=== PATIENT | male | born 1975 | race Hispanic/Latino ===

== ENCOUNTER → 2019-02-18 | Outpatient (CLI) | payer BC ==
[~2019-02-18] MED LIST: IOPAMIDOL 370 MG/ML 200 ML INFUS..BTL INJ ONE; NITROGLYCERIN 0.4 MG SUBL ONE; SODIUM CHLORIDE 0.9% 100 ML ONE
[2019-02-18 11:03] LABS: BLOOD UREA NITROGEN 20 mg/dL (7-26); BUN/CREATININE RATIO 26 (6-25); CREATININE, SERUM 0.77 mg/dL (0.72-1.25); EST GLOMERULAR FILTRATION RATE > 60 ML/MIN (60-)
--- NOTE | 2019-02-18 13:33 | Diagnostic Imaging Report ---
EXAM: CALCIUM SCORE AND CORONARY CTA INDICATION: ^[id number] ^[id number] ^CHEST PAIN COMPARISON: None. TECHNIQUE: Multi-detector CT technology was employed (64 MDCT [employer]). Minimal slice thickness with retrospective gating was performed following the intravenous administration of contrast material. The patient was premedicated with 0.4 mg sublingual nitroglycerin for coronary dilation. No need to administer beta gregorio due to low heart rate during the exam (50 bpm). IV CONTRAST: 150 mL of Omnipaque 350 ORAL CONTRAST: None COMPLICATIONS: None RADIATION DOSE: Total DLP: 1372.4 mGy*cm Estimated effective dose: (DLP x 0.015 x size factor) mSv CTDIvol has been reviewed. It is below the limits set by the Radiation Protocol Committee (RPC). For optimization of anatomic evaluation, multiplanar reconstruction, maximum intensity projections, and advanced 3-D off-line postprocessing were performed on a dedicated stand-alone workstation under the direct supervision of the interpreting physician. QUALITY: Excellent FINDINGS: CALCIUM SCORE: The observed Agatston Calcium Score of 17.6 is at percentile between 75 and 90% for subjects of the same age and gender who are free of clinical cardiovascular disease and treated diabetes. The Agatston score for each vessel is as follows: LM: 0 LAD: 0 LCx: 17.6 RCA: 0 DISTRIBUTION OF THE CALCIFIED PLAQUES: Minimal calcified plaque in the proximal LCx. CORONARY ANATOMY: There is normal origin of the coronary arteries. Left Main Coronary Artery: The left main is normal sized vessel that bifurcates into the LAD and circumflex. There is no evidence of atherosclerotic changes or stenotic disease. Left Anterior Descending Coronary Artery: The LAD is a normal size vessel that wraps around the apex. It gives rise to 2 acute diagonal branches. There is no evidence of atherosclerotic changes or stenotic disease. Left Circumflex Coronary Artery: The LCX is a normal size vessel, which is co-dominant. It gives rise to 3 small obtuse marginal branches. Minimal calcified plaque in the proximal LCx. Otherwise, no evidence of atherosclerotic changes or stenotic disease in the remaining segments. Right Coronary Artery: The RCA is a normal size vessel, which is co-dominant. It gives rise to a conus branch, AV awilda branch, and 2 acute marginal branches. In its distal segment it bifurcates into the PDA and PV branch. There is no evidence of atherosclerotic changes or stenotic disease. CARDIAC MORPHOLOGY AND FUNCTION: The right and left atria and ventricles are morphologically normal. The left atrium is mildly enlarged. Mild concentric left ventricular hypertrophy. There is normal resting global left ventricular systolic function. LVEF: 65%, LV end diastolic volume: 186 cc LV end systolic volume: 65 cc LV stroke volume: 120.1 cc LIMITED CHEST: Limited views of the visualized chest show no abnormality within chest wall and mediastinum. No mediastinal lymphadenopathy. The visualized lungs are clear. The visualized portions of the ascending and descending thoracic aorta are of normal size. LIMITED ABDOMEN: Limited images of the upper abdomen reveal no abnormalities of the visualized organs. BONES: No acute osseous abnormalities. IMPRESSION: 1. Total Agatston Calcium Score: 17.6 that corresponds to percentile between 75 and 90%, representing minimal plaque burden. 2. Normal coronary anatomy. Co-dominant RCA and LCX. 3. Minimal calcified nonobstructing plaque in the proximal LCx. Otherwise, no evidence of atherosclerotic changes or stenotic disease in the remaining coronary arteries. CAD-NICOLA: 1 Reference: [email or web address] Signed by: Dr. Kristin Snow M.D. on 02/18/2019 1:29 PM
== END ==
LOC: CT 09:01
PROVIDERS: ATTEND Internal Medicine
DX: R07.9 Chest pain, unspecified (principal)
CPT/HCPCS: 36415; 75574; 82565; 84520; J7050; Q9967